=== PATIENT | male | born 1965 | race Caucasian/White ===

== ENCOUNTER 2017-02-23 10:08 | Emergency (ER) | payer OTHER ==
[~2017-02-23] VITALS: Ht 180.3 cm; Wt 90.6 kg
[~2017-02-23 10:08] MED LIST: AMOX TR-K CLV1 EAC4 PO; ANUSOL-HC21 GM PR; ASPIRIN325 MG PO; ATARAX,VISTARIL50 MG PO; CIPRO500 MG PO; DICYCLOMINE HCL20 MG PO; FIORICET WI1 CAPSULE PO; FLAGYL500 MG PO; MEDROL DOSEPAK4 MG PO; MOTRIN600 MG PO; MOTRIN800 MG PO; PREDNISONE20 MG PO; PRILOSEC20 MG PO; PRILOSEC40 MG PO; TORADOL10 MG PO; Tums,OsCal PO; ULTRAM50 MG PO; VITAMIN B122500 MCG PO; ZOFRAN ODT8 MG PO; ZOFRAN4 MG PO; ZYRTEC10 M1 PO
[2017-02-23 11:54] LABS: MCH 27.8 PG (29.0-34.0); MCHC 32.4 G/DL (30.0-36.0); MCV 85.7 FL (86-99); MEAN PLAT.VOLUME 11.5 uM^3 (9.0-12.4); PLATELET COUNT 216 K/uL (156-360); RBC DIS.WIDTH-CV 12.9 % (11.8-14.6); RED BLOOD COUNT 5.25 M/uL (4.00-5.50); WHITE BLOOD COUNT 7.6 K/uL (4.1-10.2)
[2017-02-23 12:04] LABS: CHLORIDE 106 mEq/L (99-109); POTASSIUM 4.7 mEq/L (3.7-5.4); SODIUM 140 mEq/L (136-147)
[2017-02-23 12:06] LABS: GLUCOSE 114 mg/dL (70-99)
[2017-02-23 12:07] LABS: ANION GAP 11 MEQ/L (2-14)
[2017-02-23 12:10] LABS: GFR ESTIMATE (CALCULATED) > 59 mL/min/
[2017-02-23 12:11] LABS: UREA NITROGEN (BUN) 13 mg/dL (9-23)
[2017-02-23 12:17] LABS: TROP-I INTERPRETATION NEGATIVE; TROPONIN-I < 0.01 ng/mL (0.0-0.30)
[2017-02-23 14:54] LABS: TROP-I INTERPRETATION NEGATIVE; TROPONIN-I < 0.01 ng/mL (0.0-0.30)
[2017-02-23 16:04] VITALS: BP 108/70
== END 2017-02-23 16:08 | disposition home or self-care (01) ==
LOC: EME 10:08
PROVIDERS: Physician Assistant Medical
DX: R51 Headache (principal); R11.0 Nausea; R42 Dizziness and giddiness
CPT/HCPCS: 70450; 80048; 84484; 85027; 93005; 99281; 99285; J0780; J1200; J1885; J7030

== ENCOUNTER 2017-04-05 15:37 | Emergency (ER) | payer OTHER ==
[~2017-04-05] VITALS: Ht 180.3 cm; Wt 86.1 kg
[2017-04-05 16:38] LABS: APPEARANCE CLEAR ((CLEAR)); BILIRUBIN NEGATIVE; BLOOD NEGATIVE; COLOR YELLOW ((YELLOW)); GLUCOSE (STRIP) NEGATIVE; KETONES NEGATIVE; LEUKOCYTES NEGATIVE; NITRITE NEGATIVE; PROTEIN (STRIP) NEGATIVE; SPECIFIC GRAVITY 1.009 (1.000-1.030); UCUL ADDED? NO; UROBILINOGEN 0.2 MG/DL (0.2-1.0)
[2017-04-05] MEDS ORDERED: AMBIEN10 MG PO (18:02)
[2017-04-05] MEDS ORDERED: PROZAC20 MG PO (18:02)
[2017-04-05] MEDS ORDERED: XANAX0.25 MG PO (18:03)
[2017-04-05 19:06] LABS: HEMATOCRIT 45.4 % (38.0-50.0); MCH 27.8 PG (29.0-34.0); MCV 84.1 FL (86-99); PLATELET COUNT 247 K/uL (156-360); RBC DIS.WIDTH-CV 12.5 % (11.8-14.6); RBC DIS.WIDTH-SD 37.9 % (39-53); WHITE BLOOD COUNT 9.8 K/uL (4.1-10.2)
[2017-04-05 19:19] LABS: CHLORIDE 104 mEq/L (99-109); POTASSIUM 3.9 mEq/L (3.7-5.4); SODIUM 141 mEq/L (136-147)
[2017-04-05 19:20] LABS: SOURCE URINE
[2017-04-05 19:21] LABS: GLUCOSE 101 mg/dL (70-99)
[2017-04-05 19:25] LABS: CREATININE 0.9 mg/dL (0.6-1.3); GFR ESTIMATE (CALCULATED) > 59 mL/min/ (58.99-99999); UREA NITROGEN (BUN) 11 mg/dL (9-23)
[2017-04-05] MEDS ORDERED: CIPRO500 MG PO (21:14)
[2017-04-05 21:36] VITALS: BP 144/72
[2017-04-07 11:54] LABS: CHLAMYDIA TRACHOMATIS NEGATIVE; NEISSERIA GONORRHOEAE NEGATIVE
== END 2017-04-05 21:37 | disposition home or self-care (01) ==
LOC: EME 15:37
PROVIDERS: Physician Assistant Medical
DX: N41.9 Inflammatory disease of prostate, unspecified (principal); N20.0 Calculus of kidney; Z87.442 Personal history of urinary calculi
CPT/HCPCS: 74176; 80048; 81003; 85027; 87491; 87591; 99281; 99284